=== PATIENT | male | born 1975 | race African-American/Black ===

== ENCOUNTER 2018-11-22 16:36 | Emergency (ER) | payer OTHER ==
[2018-11-22] MEDS ORDERED: IBUPROFEN 600 MG TAB PO STA (18:41)
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
[2018-11-22 20:23] VITALS: BP 137/80; PULSE 80; RESP 20; TEMP 98.3
== END 2018-11-22 20:23 | disposition home or self-care (01) ==
LOC: EC 16:36
DX: M54.5 Low back pain (principal); M54.2 Cervicalgia
CPT/HCPCS: 72020; 99283